=== PATIENT | female | born 1930 | race African-American/Black ===

== ENCOUNTER 2016-06-10 21:48 | Emergency (ER) | payer MEDICARE, MEDICAID ==
[~2016-06-10] VITALS: Ht 152.4 cm; Wt 51.0 kg
[~2016-06-10 21:48] MED LIST: AMLO5TAB4 PO
[2016-06-11] MEDS ORDERED: MAGNESIUM/ALUMINUM HYDROXIDE/SIMETHICONE 30ML UDC PO ONE (00:15)
[2016-06-11] MEDS ORDERED: FAMOTIDINE 20MG/2ML VIAL IV ONE (00:15)
[2016-06-11] MEDS ORDERED: VISCOUS LIDOCAINE 2% 15 ML UDC MM ONE (00:15)
[2016-06-11 03:33] VITALS: BP 125/65
== END 2016-06-11 03:45 | disposition home or self-care (01) ==
LOC: ER 21:49
DX: R10.13 Epigastric pain (principal); K21.9 Gastro-esophageal reflux disease without esophagitis; R07.9 Chest pain, unspecified; Z86.73 Personal history of transient ischemic attack (TIA), and cerebral infarction without residual deficits; Z98.890 Other specified postprocedural states
CPT/HCPCS: 36415; 84484; 93005; 96374; 99285

== ENCOUNTER 2017-01-09 13:14 | Emergency (ER) | payer MEDICAID, MEDICARE ==
[~2017-01-09] VITALS: Ht 152.4 cm; Wt 54.0 kg
[2017-01-09 15:00] VITALS: BP 140/72
[2017-01-09] MEDS ORDERED: IPRATROPIUM BROMIDE (0.02%) 0.5MG/2.5ML NEB HHN STA (16:29)
[2017-01-09] MEDS ORDERED: ALBUTEROL (0.083%) 2.5MG/3ML NEB HHN STA (16:29)
[2017-01-09] MEDS ORDERED: PREDNISONE 20MG TABLET PO STA (16:29)
== END 2017-01-09 18:56 | disposition home or self-care (01) ==
LOC: ER 13:43
DX: J44.9 Chronic obstructive pulmonary disease, unspecified (principal); I10 Essential (primary) hypertension; E78.00 Pure hypercholesterolemia, unspecified; Z86.73 Personal history of transient ischemic attack (TIA), and cerebral infarction without residual deficits; Z96.649 Presence of unspecified artificial hip joint; Z88.5 Allergy status to narcotic agent
CPT/HCPCS: 71010; 94640; 99283; J7512; J7611; J7644

== ENCOUNTER 2018-04-11 12:17 | Emergency (ER) | payer MEDICARE, MEDICAID ==
[~2018-04-11] VITALS: Ht 165.1 cm; Wt 53.0 kg
[2018-04-11 15:52] LABS: HEMOGLOBIN 14.3 g/dL (12.0-16.0); MEAN CORPUSCULAR HEMOGLOBIN 29.2 pg (28.0-32.0); MEAN CORPUSCULAR VOLUME 87.8 fL (81.0-99.0); PLATELET 134 x1000/uL (130-400); RED CELL DISTRIBUTION WIDTH 13.6 % (11.6-14.6)
[2018-04-11 15:55] LABS: CHLORIDE 106 mEq/L (98-107)
[2018-04-11 16:03] LABS: CREATINE KINASE 550 IU/L (26-192)
[2018-04-11 17:24] LABS: CLARITY URINE CLOUDY (CLEAR); COLOR URINE YELLOW (YELLOW); KETONES URINE 1+ (NEGATIVE); LEUKOCYTE ESTERASE URINE TRACE (NEGATIVE); NITRITE URINE POSITIVE (NEGATIVE); OCCULT BLOOD URINE 2+ (NEGATIVE); PROTEIN URINE TRACE (NEGATIVE); SPECIFIC GRAVITY URINE 1.016 (1.005-1.030)
[2018-04-11] MEDS ORDERED: CEPHALEXIN 250MG CAPSULE PO NR (17:45)
[2018-04-11 18:10] VITALS: BP 112/74
== END 2018-04-11 18:10 | disposition home or self-care (01) ==
LOC: ER 12:17
DX: N39.0 Urinary tract infection, site not specified (principal); E78.00 Pure hypercholesterolemia, unspecified; I10 Essential (primary) hypertension; W01.0XXA Fall on same level from slipping, tripping and stumbling without subsequent striking against object, initial encounter; Y93.89 Activity, other specified; Y92.003 Bedroom of unspecified non-institutional (private) residence as the place of occurrence of the external cause; Z86.73 Personal history of transient ischemic attack (TIA), and cerebral infarction without residual deficits; Z96.641 Presence of right artificial hip joint
CPT/HCPCS: 36415; 71045; 72170; 82550; 85027; 99284

== ENCOUNTER 2018-04-12 18:06 | Inpatient (IN) | payer MEDICARE, MEDICAID ==
[~2018-04-12] VITALS: Ht 165.1 cm; Wt 60.4 kg
[2018-04-12] MEDS ORDERED: SODIUM CHLORIDE 0.9% 1,000 ML IV ONE (18:28)
[2018-04-12 20:02] LABS: BASOPHILS % 0.6 % (0.0-2.0); EOSINOPHILS % 0.8 % (0.0-5.0); HEMOGLOBIN. 13.4 g/dL (12.0-16.0); LYMPHOCYTES % 15.7 % (20.0-50.0); MEAN CORPUSCULAR HEMOGLOBIN 29.7 pg (28.0-32.0); MEAN CORPUSCULAR VOLUME 88.5 fL (81.0-99.0); MEAN PLATELET VOLUME 9.7 fl (7.4-10.4); MONOCYTES % 10.9 % (2.0-8.0); PLATELET 134 x1000/uL (130-400); RED BLOOD CELL COUNT 4.52 mill/uL (4.2-5.4); RED CELL DISTRIBUTION WIDTH 13.7 % (11.6-14.6)
[2018-04-12 20:05] LABS: CHLORIDE 107 mEq/L (98-107)
[2018-04-12 20:09] LABS: ETHANOL BLOOD < 10 mg/dL
[2018-04-12 20:12] LABS: LDL CHOLESTEROL 72 mg/dL (5-100)
[2018-04-12 20:13] LABS: INR 1.1; PROTHROMBIN TIME 10.9 sec (9.1-11.1)
[2018-04-12] MEDS ORDERED: ASPIRIN 81MG TABLET PO ONE (20:15)
[2018-04-12] MEDS ORDERED: IOHEXOL-350 100 ML BOTTLE ONE (20:31)
[2018-04-13] VITALS (9 sets, daily range): BP systolic 107–137; BP diastolic 51–80
[2018-04-13 09:12] LABS: BASOPHILS % 0.6 % (0.0-2.0); EOSINOPHILS % 2.3 % (0.0-5.0); HEMATOCRIT. 38.2 % (36.0-48.0); HEMOGLOBIN. 12.8 g/dL (12.0-16.0); LYMPHOCYTES % 23.2 % (20.0-50.0); MEAN CORPUSCULAR HEMOGLOBIN 29.4 pg (28.0-32.0); MEAN CORPUSCULAR VOLUME 87.7 fL (81.0-99.0); MEAN PLATELET VOLUME 9.3 fl (7.4-10.4); MONOCYTES % 10.3 % (2.0-8.0); NEUTROPHILS % 63.6 % (40.0-76.0); PLATELET 131 x1000/uL (130-400); RED BLOOD CELL COUNT 4.36 mill/uL (4.2-5.4); RED CELL DISTRIBUTION WIDTH 13.3 % (11.6-14.6)
[2018-04-13 09:20] LABS: CHLORIDE 113 mEq/L (98-107)
[2018-04-13 09:28] LABS: LDL CHOLESTEROL 73 mg/dL (5-100)
[2018-04-13 09:30] LABS: HDL CHOLESTEROL 49 mg/dL (40-59)
[2018-04-13 09:56] LABS: CLARITY URINE CLEAR (CLEAR); COLOR URINE YELLOW (YELLOW); KETONES URINE 1+ (NEGATIVE); LEUKOCYTE ESTERASE URINE NEGATIVE (NEGATIVE); NITRITE URINE NEGATIVE (NEGATIVE); OCCULT BLOOD URINE 1+ (NEGATIVE); PROTEIN URINE NEGATIVE (NEGATIVE); SPECIFIC GRAVITY URINE 1.058 (1.005-1.030)
[2018-04-13] MEDS: DEXT 5%/0.45% NACL KCL 20MEQ/L 1,000 ML IV SCH ×2 (09:56→16:41)
[2018-04-13 10:20] LABS: *AMPHETAMINES SCREEN URINE NEGATIVE (NEGATIVE); OPIATES URINE SCREEN NEGATIVE (NEGATIVE)
[2018-04-13 10:21] LABS: *BARBITURATES SCREEN URINE NEGATIVE (NEGATIVE); *BENZODIAZEPINES SCREEN URINE NEGATIVE (NEGATIVE)
[2018-04-13 10:22] LABS: PHENCYCLIDINE URINE SCREEN NEGATIVE (NEGATIVE)
[2018-04-13 10:23] LABS: CANNABINOID URINE SCREEN NEGATIVE (NEGATIVE)
[2018-04-13 10:24] LABS: METHADONE URINE SCREEN NEGATIVE (NEGATIVE)
[2018-04-13 10:25] LABS: *COCAINE SCREEN URINE NEGATIVE (NEGATIVE)
[2018-04-13] MEDS: ASPIRIN 81MG EC TABLET PO SCH (18:45)
[2018-04-13] MEDS: ENOXAPARIN 40MG/0.4ML SYR SUBCUT SCH (18:45)
[2018-04-13] MEDS ORDERED: ATORVASTATIN CALCIUM 40MG TABLET PO SCH (21:00)
[2018-04-14] VITALS (12 sets, daily range): BP systolic 99–147; BP diastolic 48–99
[2018-04-14] MEDS: DEXT 5%/0.45% NACL KCL 20MEQ/L 1,000 ML IV SCH ×2 (03:33→12:10)
[2018-04-14 07:16] LABS: BASOPHILS % 0.7 % (0.0-2.0); EOSINOPHILS % 2.4 % (0.0-5.0); HEMATOCRIT. 35.6 % (36.0-48.0); HEMOGLOBIN. 11.9 g/dL (12.0-16.0); LYMPHOCYTES % 19.9 % (20.0-50.0); MEAN CORPUSCULAR HEMOGLOBIN 29.5 pg (28.0-32.0); MEAN CORPUSCULAR VOLUME 87.8 fL (81.0-99.0); MEAN PLATELET VOLUME 9.6 fl (7.4-10.4); MONOCYTES % 11.8 % (2.0-8.0); NEUTROPHILS % 65.2 % (40.0-76.0); PLATELET 122 x1000/uL (130-400); RED BLOOD CELL COUNT 4.05 mill/uL (4.2-5.4); RED CELL DISTRIBUTION WIDTH 13.1 % (11.6-14.6)
[2018-04-14 08:04] LABS: CHLORIDE 112 mEq/L (98-107)
[2018-04-14] MEDS: ASPIRIN 81MG EC TABLET PO SCH (08:19)
[2018-04-14] MEDS: ENOXAPARIN 40MG/0.4ML SYR SUBCUT SCH (16:05)
[2018-04-14] MEDS ORDERED: ATORVASTATIN CALCIUM 10MG TABLET PO SCH (21:00)
[2018-04-15] VITALS (11 sets, daily range): BP systolic 101–176; BP diastolic 39–99
[2018-04-15] MEDS: DEXT 5%/0.45% NACL KCL 20MEQ/L 1,000 ML IV SCH ×2 (01:22→12:33)
[2018-04-15 07:58] LABS: CHLORIDE 113 mEq/L (98-107)
[2018-04-15] MEDS ORDERED: GADOBENATE DIMEGLUMINE 529 MG/ML 10ML IV ONE (09:12)
[2018-04-15] MEDS ORDERED: AMLODIPINE 5MG TABLET PO SCH (10:45)
[2018-04-15] MEDS ORDERED: HYDRALAZINE 20MG/ML VIAL IV PRN (13:00)
[2018-04-15] MEDS: ENOXAPARIN 40MG/0.4ML SYR SUBCUT SCH (16:52)
== END 2018-04-15 18:25 | DRG 65 ==
LOC: ER 18:06 → 3WST 04-13 00:27 → EDBEDREQTM 04-13 00:33 → EDBEDREQ 04-13 00:33 → ENRESERV 04-13 02:56
PROVIDERS: ADMIT Internal Medicine; ATTEND Internal Medicine
DX: I63.9 Cerebral infarction, unspecified (principal); G93.40 Encephalopathy, unspecified; D68.59 Other primary thrombophilia; G81.91 Hemiplegia, unspecified affecting right dominant side; E86.0 Dehydration; D64.9 Anemia, unspecified; Z96.641 Presence of right artificial hip joint; R47.81 Slurred speech; R74.8 Abnormal levels of other serum enzymes; R26.2 Difficulty in walking, not elsewhere classified; F03.90 Unspecified dementia, unspecified severity, without behavioral disturbance, psychotic disturbance, mood disturbance, and anxiety; I65.23 Occlusion and stenosis of bilateral carotid arteries; Z60.2 Problems related to living alone; D32.9 Benign neoplasm of meninges, unspecified; D18.09 Hemangioma of other sites; R73.9 Hyperglycemia, unspecified; I11.9 Hypertensive heart disease without heart failure; Z86.73 Personal history of transient ischemic attack (TIA), and cerebral infarction without residual deficits; Z87.440 Personal history of urinary (tract) infections; Z88.5 Allergy status to narcotic agent; Z88.6 Allergy status to analgesic agent; Z79.899 Other long term (current) drug therapy
CPT/HCPCS: 36415; 70496; 70498; 70551; 70552; 71045; 72170; 80048; 80061; 80305; 80320; 82140; 82550; 82962; 83036; 83721; 84484; 85027; 92523; 92610; 93005; 93306; 96365; 96375; 97116; 97163; 97167; 97530; 99285; A6261; A9577; C1893; J1650; J7030; J7050; Q9967; A4315; G0480

== ENCOUNTER 2018-04-15 18:35 | Inpatient (IN) | payer MEDICARE, MEDICAID ==
[~2018-04-15] VITALS: Ht 157.5 cm; Wt 59.0 kg
[2018-04-15 19:45] VITALS: BP 132/79
[2018-04-15 20:00] VITALS: BP 132/79
[2018-04-15] MEDS ORDERED: HYDROCODONE/ACETAMINOPHEN 5/325MG TABLET PO PRN (21:00)
[2018-04-15] MEDS: ATORVASTATIN CALCIUM 10MG TABLET PO SCH (21:33)
[2018-04-16 07:17] LABS: HEMATOCRIT 37.3 % (36.0-48.0); HEMOGLOBIN 12.6 g/dL (12.0-16.0); MEAN CORPUSCULAR HEMOGLOBIN 29.4 pg (28.0-32.0); PLATELET 130 x1000/uL (130-400); RED BLOOD CELL COUNT 4.29 mill/uL (4.2-5.4); RED CELL DISTRIBUTION WIDTH 13.6 % (11.6-14.6)
[2018-04-16 08:00] VITALS: BP 122/55
[2018-04-16] MEDS: AMLODIPINE 5MG TABLET PO SCH (08:12)
[2018-04-16 08:20] LABS: CHLORIDE 109 mEq/L (98-107)
[2018-04-16] MEDS ORDERED: DIPHENHYDRAMINE 50MG/ML VIAL IV PRN (14:45)
[2018-04-16] MEDS ORDERED: ACETAMINOPHEN 650MG SUPP PR PRN (14:45)
[2018-04-16] MEDS ORDERED: DOCUSATE SODIUM 100MG CAPSULE PO PRN (14:45)
[2018-04-16] MEDS ORDERED: HYDRALAZINE 20MG/ML VIAL IV PRN (14:45)
[2018-04-16] MEDS ORDERED: ACETAMINOPHEN 325MG TABLET PO PRN (15:00)
[2018-04-16] MEDS ORDERED: NA PHOS,M-B/NA PHOS,DI-BA ENEMA 118ML PR PRN (15:00)
[2018-04-16] MEDS ORDERED: LACTULOSE 20G/30ML UDC PO PRN (15:00)
[2018-04-16] MEDS ORDERED: HYDRALAZINE 10 MG in SODIUM CHLORIDE 0.9% 50 ML IV PRN (15:15)
[2018-04-16] MEDS: CLOPIDOGREL 75MG TABLET PO SCH (15:42)
[2018-04-16] MEDS: ENOXAPARIN 40MG/0.4ML SYR SUBCUT SCH (16:13)
[2018-04-16 20:00] VITALS: BP 124/47
[2018-04-16] MEDS: ATORVASTATIN CALCIUM 10MG TABLET PO SCH (20:38)
[2018-04-17 06:45] LABS: CHLORIDE 111 mEq/L (98-107)
[2018-04-17 06:55] LABS: HEMATOCRIT 37.3 % (36.0-48.0); HEMOGLOBIN 12.5 g/dL (12.0-16.0); MEAN CORPUSCULAR HEMOGLOBIN 29.2 pg (28.0-32.0); MEAN CORPUSCULAR VOLUME 87.2 fL (81.0-99.0); PLATELET 146 x1000/uL (130-400); RED BLOOD CELL COUNT 4.28 mill/uL (4.2-5.4); RED CELL DISTRIBUTION WIDTH 13.5 % (11.6-14.6)
[2018-04-17 08:00] VITALS: BP 132/57
[2018-04-17] MEDS: AMLODIPINE 5MG TABLET PO SCH (09:12)
[2018-04-17] MEDS: SULFAMETHOXAZOLE/TRIMETHOPRIM 400/80MG TAB PO SCH (09:12)
[2018-04-17] MEDS: CLOPIDOGREL 75MG TABLET PO SCH (09:12)
[2018-04-17] MEDS: ENOXAPARIN 40MG/0.4ML SYR SUBCUT SCH (17:07)
[2018-04-17 20:00] VITALS: BP 138/50
[2018-04-17] MEDS: ATORVASTATIN CALCIUM 10MG TABLET PO SCH (20:22)
[2018-04-17] MEDS: ASCORBIC ACID 250 MG TABLET PO SCH (20:22)
[2018-04-18 08:00] VITALS: BP 120/49
[2018-04-18] MEDS: ZINC SULFATE 220 MG ( 50 ) CAPSULE PO SCH (08:28)
[2018-04-18] MEDS: AMLODIPINE 5MG TABLET PO SCH (08:28)
[2018-04-18] MEDS: CLOPIDOGREL 75MG TABLET PO SCH (08:28)
[2018-04-18] MEDS: ASCORBIC ACID 250 MG TABLET PO SCH ×2 (08:28→20:25)
[2018-04-18] MEDS: SULFAMETHOXAZOLE/TRIMETHOPRIM 400/80MG TAB PO SCH (08:28)
[2018-04-18] MEDS: MULTIVITAMINS,THER W-MINERALS TABLET PO SCH (08:28)
[2018-04-18] MEDS: ENOXAPARIN 40MG/0.4ML SYR SUBCUT SCH (16:50)
[2018-04-18 20:00] VITALS: BP 102/49
[2018-04-18] MEDS: ATORVASTATIN CALCIUM 10MG TABLET PO SCH (20:24)
[2018-04-19 07:27] LABS: HEMATOCRIT 36.2 % (36.0-48.0); MEAN CORPUSCULAR HEMOGLOBIN 29.3 pg (28.0-32.0); MEAN CORPUSCULAR VOLUME 87.9 fL (81.0-99.0); PLATELET 182 x1000/uL (130-400); RED BLOOD CELL COUNT 4.11 mill/uL (4.2-5.4); RED CELL DISTRIBUTION WIDTH 13.5 % (11.6-14.6)
[2018-04-19 07:53] LABS: CHLORIDE 109 mEq/L (98-107)
[2018-04-19 08:26] VITALS: BP 113/44
[2018-04-19] MEDS: AMLODIPINE 5MG TABLET PO SCH (09:00)
[2018-04-19] MEDS: ZINC SULFATE 220 MG ( 50 ) CAPSULE PO SCH (09:47)
[2018-04-19] MEDS: ASCORBIC ACID 250 MG TABLET PO SCH ×2 (09:47→21:25)
[2018-04-19] MEDS: CLOPIDOGREL 75MG TABLET PO SCH (09:48)
[2018-04-19] MEDS: SULFAMETHOXAZOLE/TRIMETHOPRIM 400/80MG TAB PO SCH (09:51)
[2018-04-19] MEDS: MULTIVITAMINS,THER W-MINERALS TABLET PO SCH (09:51)
[2018-04-19] MEDS: ENOXAPARIN 40MG/0.4ML SYR SUBCUT SCH (16:14)
[2018-04-19 20:00] VITALS: BP 120/51
[2018-04-19] MEDS: ATORVASTATIN CALCIUM 10MG TABLET PO SCH (21:25)
[2018-04-20 08:00] VITALS: BP 113/51
[2018-04-20] MEDS: SULFAMETHOXAZOLE/TRIMETHOPRIM 400/80MG TAB PO SCH (09:00)
[2018-04-20] MEDS: CLOPIDOGREL 75MG TABLET PO SCH (09:00)
[2018-04-20] MEDS: ZINC SULFATE 220 MG ( 50 ) CAPSULE PO SCH (09:00)
[2018-04-20] MEDS: ASCORBIC ACID 250 MG TABLET PO SCH ×2 (09:00→20:34)
[2018-04-20] MEDS: MULTIVITAMINS,THER W-MINERALS TABLET PO SCH (09:00)
[2018-04-20] MEDS: ENOXAPARIN 40MG/0.4ML SYR SUBCUT SCH (17:13)
[2018-04-20 20:00] VITALS: BP 107/63
[2018-04-20] MEDS: ATORVASTATIN CALCIUM 10MG TABLET PO SCH (20:34)
[2018-04-21 08:00] VITALS: BP 107/45
[2018-04-21] MEDS: ZINC SULFATE 220 MG ( 50 ) CAPSULE PO SCH (10:11)
[2018-04-21] MEDS: SULFAMETHOXAZOLE/TRIMETHOPRIM 400/80MG TAB PO SCH (10:11)
[2018-04-21] MEDS: MULTIVITAMINS,THER W-MINERALS TABLET PO SCH (10:11)
[2018-04-21] MEDS: CLOPIDOGREL 75MG TABLET PO SCH (10:11)
[2018-04-21] MEDS: ASCORBIC ACID 250 MG TABLET PO SCH ×2 (10:11→20:28)
[2018-04-21] MEDS: ENOXAPARIN 40MG/0.4ML SYR SUBCUT SCH (18:07)
[2018-04-21 20:00] VITALS: BP 115/41
[2018-04-21] MEDS: ATORVASTATIN CALCIUM 10MG TABLET PO SCH (20:28)
[2018-04-22 08:41] VITALS: BP 109/46
[2018-04-22] MEDS: ZINC SULFATE 220 MG ( 50 ) CAPSULE PO SCH (09:15)
[2018-04-22] MEDS: CLOPIDOGREL 75MG TABLET PO SCH (09:15)
[2018-04-22] MEDS: MULTIVITAMINS,THER W-MINERALS TABLET PO SCH (09:15)
[2018-04-22] MEDS: ASCORBIC ACID 250 MG TABLET PO SCH ×2 (09:15→20:47)
[2018-04-22] MEDS: SULFAMETHOXAZOLE/TRIMETHOPRIM 400/80MG TAB PO SCH (09:15)
[2018-04-22] MEDS: ACETAMINOPHEN 325MG TABLET PO PRN (09:35)
[2018-04-22] MEDS: TRAMADOL 50MG TABLET PO PRN (13:44)
[2018-04-22] MEDS: ENOXAPARIN 40MG/0.4ML SYR SUBCUT SCH (16:44)
[2018-04-22 20:00] VITALS: BP 116/54
[2018-04-22] MEDS: ATORVASTATIN CALCIUM 10MG TABLET PO SCH (20:47)
[2018-04-23 08:21] VITALS: BP 105/54
[2018-04-23] MEDS: ASCORBIC ACID 250 MG TABLET PO SCH ×2 (08:45→21:47)
[2018-04-23] MEDS: SULFAMETHOXAZOLE/TRIMETHOPRIM 400/80MG TAB PO SCH (08:45)
[2018-04-23] MEDS: ZINC SULFATE 220 MG ( 50 ) CAPSULE PO SCH (08:45)
[2018-04-23] MEDS: MULTIVITAMINS,THER W-MINERALS TABLET PO SCH (08:45)
[2018-04-23] MEDS: CLOPIDOGREL 75MG TABLET PO SCH (08:45)
[2018-04-23 16:15] VITALS: BP 115/71
[2018-04-23] MEDS: ENOXAPARIN 40MG/0.4ML SYR SUBCUT SCH (16:21)
[2018-04-23] MEDS: TRAMADOL 50MG TABLET PO PRN (16:22)
[2018-04-23 20:00] VITALS: BP 108/63
[2018-04-23] MEDS: ATORVASTATIN CALCIUM 10MG TABLET PO SCH (21:47)
[2018-04-24 06:29] LABS: HEMATOCRIT 37.7 % (36.0-48.0); HEMOGLOBIN 12.3 g/dL (12.0-16.0); MEAN CORPUSCULAR HEMOGLOBIN 28.7 pg (28.0-32.0); MEAN CORPUSCULAR VOLUME 88.1 fL (81.0-99.0); PLATELET 266 x1000/uL (130-400); RED BLOOD CELL COUNT 4.28 mill/uL (4.2-5.4); RED CELL DISTRIBUTION WIDTH 13.1 % (11.6-14.6)
[2018-04-24 07:23] LABS: CHLORIDE 105 mEq/L (98-107)
[2018-04-24 08:00] VITALS: BP 119/50
[2018-04-24] MEDS: SULFAMETHOXAZOLE/TRIMETHOPRIM 400/80MG TAB PO SCH (09:35)
[2018-04-24] MEDS: ASCORBIC ACID 250 MG TABLET PO SCH ×2 (09:35→20:24)
[2018-04-24] MEDS: CLOPIDOGREL 75MG TABLET PO SCH (09:35)
[2018-04-24] MEDS: ZINC SULFATE 220 MG ( 50 ) CAPSULE PO SCH (09:35)
[2018-04-24] MEDS: MULTIVITAMINS,THER W-MINERALS TABLET PO SCH (09:35)
[2018-04-24] MEDS: TRAMADOL 50MG TABLET PO PRN (10:56)
[2018-04-24] MEDS ORDERED: HYDROCODONE/ACETAMINOPHEN 5/325MG TABLET PO PRN (14:15)
[2018-04-24] MEDS ORDERED: SODIUM POLYSTYRENE SULFONATE 15 G/60 ML BOT PO NR (14:45)
[2018-04-24] MEDS: ENOXAPARIN 40MG/0.4ML SYR SUBCUT SCH (17:24)
[2018-04-24 18:28] LABS: CLARITY URINE CLEAR (CLEAR); COLOR URINE DARK YELLOW (YELLOW); KETONES URINE NEGATIVE (NEGATIVE); LEUKOCYTE ESTERASE URINE NEGATIVE (NEGATIVE); NITRITE URINE NEGATIVE (NEGATIVE); OCCULT BLOOD URINE NEGATIVE (NEGATIVE); PH URINE 5.5 (4.5-8.0); PROTEIN URINE NEGATIVE (NEGATIVE); SPECIFIC GRAVITY URINE 1.022 (1.005-1.030); UROBILINOGEN URINE 0.2 E.U./dL (0.2-1.0)
[2018-04-24 20:00] VITALS: BP 116/55
[2018-04-24] MEDS: ATORVASTATIN CALCIUM 10MG TABLET PO SCH (20:24)
[2018-04-24] MEDS: CEPHALEXIN 250MG CAPSULE PO SCH (20:24)
[2018-04-24] MEDS: ACETAMINOPHEN 325MG TABLET PO PRN (20:25)
[2018-04-25 07:30] LABS: HEMATOCRIT 37.2 % (36.0-48.0); MEAN CORPUSCULAR VOLUME 89.7 fL (81.0-99.0); PLATELET 278 x1000/uL (130-400); RED BLOOD CELL COUNT 4.15 mill/uL (4.2-5.4); RED CELL DISTRIBUTION WIDTH 13.4 % (11.6-14.6)
[2018-04-25 08:00] VITALS: BP 121/50
[2018-04-25] MEDS: ZINC SULFATE 220 MG ( 50 ) CAPSULE PO SCH (09:17)
[2018-04-25] MEDS: ASCORBIC ACID 250 MG TABLET PO SCH ×2 (09:17→20:28)
[2018-04-25] MEDS: MULTIVITAMINS,THER W-MINERALS TABLET PO SCH (09:17)
[2018-04-25] MEDS: CLOPIDOGREL 75MG TABLET PO SCH (09:17)
[2018-04-25] MEDS: CEPHALEXIN 250MG CAPSULE PO SCH ×2 (09:17→20:28)
[2018-04-25] MEDS: TRAMADOL 50MG TABLET PO PRN (09:28)
[2018-04-25] MEDS ORDERED: LIDOCAINE HCL/EPINEPHRINE 1%-EPI 1:100,000 50 ML VIAL INFIL SCH (11:30)
[2018-04-25] MEDS ORDERED: TRIAMCINOLONE ACETONIDE 40MG/ML 1ML VIAL IM SCH (11:30)
[2018-04-25] MEDS: ENOXAPARIN 30MG/0.3ML SYR SUBCUT SCH (17:15)
[2018-04-25 20:00] VITALS: BP 103/45
[2018-04-25] MEDS: ATORVASTATIN CALCIUM 10MG TABLET PO SCH (20:28)
[2018-04-26] MEDS ORDERED: TRIAMCINOLONE ACETONIDE 40MG/ML 1ML VIAL IM SCH (07:45)
[2018-04-26 08:01] VITALS: BP 104/38
[2018-04-26] MEDS: MULTIVITAMINS,THER W-MINERALS TABLET PO SCH (08:48)
[2018-04-26] MEDS: ZINC SULFATE 220 MG ( 50 ) CAPSULE PO SCH (08:48)
[2018-04-26] MEDS: ASCORBIC ACID 250 MG TABLET PO SCH ×2 (08:48→21:21)
[2018-04-26] MEDS: CEPHALEXIN 250MG CAPSULE PO SCH ×2 (08:48→21:21)
[2018-04-26] MEDS: CLOPIDOGREL 75MG TABLET PO SCH (08:49)
[2018-04-26] MEDS: ENOXAPARIN 30MG/0.3ML SYR SUBCUT SCH (17:17)
[2018-04-26 20:00] VITALS: BP 110/47
[2018-04-26] MEDS: ATORVASTATIN CALCIUM 10MG TABLET PO SCH (21:21)
[2018-04-27 08:26] VITALS: BP 122/56
[2018-04-27] MEDS: ZINC SULFATE 220 MG ( 50 ) CAPSULE PO SCH (08:49)
[2018-04-27] MEDS: MULTIVITAMINS,THER W-MINERALS TABLET PO SCH (08:49)
[2018-04-27] MEDS: CEPHALEXIN 250MG CAPSULE PO SCH ×2 (08:49→21:47)
[2018-04-27] MEDS: CLOPIDOGREL 75MG TABLET PO SCH (08:49)
[2018-04-27] MEDS: ASCORBIC ACID 250 MG TABLET PO SCH ×2 (08:49→21:47)
[2018-04-27] MEDS: ENOXAPARIN 30MG/0.3ML SYR SUBCUT SCH (17:36)
[2018-04-27 20:00] VITALS: BP 136/62
[2018-04-27] MEDS: ATORVASTATIN CALCIUM 10MG TABLET PO SCH (21:47)
[2018-04-27] MEDS: ACETAMINOPHEN 325MG TABLET PO PRN (21:47)
[2018-04-28 06:52] LABS: CHLORIDE 107 mEq/L (98-107)
[2018-04-28 07:26] LABS: HEMATOCRIT 35.5 % (36.0-48.0); HEMOGLOBIN 11.7 g/dL (12.0-16.0); MEAN CORPUSCULAR HEMOGLOBIN 28.9 pg (28.0-32.0); PLATELET 310 x1000/uL (130-400); RED BLOOD CELL COUNT 4.04 mill/uL (4.2-5.4); RED CELL DISTRIBUTION WIDTH 13.1 % (11.6-14.6)
[2018-04-28 08:49] VITALS: BP 123/47
[2018-04-28] MEDS: ASCORBIC ACID 250 MG TABLET PO SCH ×2 (08:51→20:36)
[2018-04-28] MEDS: MULTIVITAMINS,THER W-MINERALS TABLET PO SCH (08:51)
[2018-04-28] MEDS: CEPHALEXIN 250MG CAPSULE PO SCH ×3 (08:51→21:05)
[2018-04-28] MEDS: ZINC SULFATE 220 MG ( 50 ) CAPSULE PO SCH (08:51)
[2018-04-28] MEDS: CLOPIDOGREL 75MG TABLET PO SCH (08:51)
[2018-04-28] MEDS: ENOXAPARIN 40MG/0.4ML SYR SUBCUT SCH (17:00)
[2018-04-28 20:00] VITALS: BP 107/51
[2018-04-28] MEDS: ATORVASTATIN CALCIUM 10MG TABLET PO SCH (20:36)
[2018-04-29] MEDS: CEPHALEXIN 250MG CAPSULE PO SCH ×3 (05:18→20:57)
[2018-04-29 08:00] VITALS: BP 121/50
[2018-04-29] MEDS: MULTIVITAMINS,THER W-MINERALS TABLET PO SCH (10:42)
[2018-04-29] MEDS: CLOPIDOGREL 75MG TABLET PO SCH (10:42)
[2018-04-29] MEDS: ZINC SULFATE 220 MG ( 50 ) CAPSULE PO SCH (10:42)
[2018-04-29] MEDS: ASCORBIC ACID 250 MG TABLET PO SCH ×2 (10:42→20:57)
[2018-04-29] MEDS: ENOXAPARIN 40MG/0.4ML SYR SUBCUT SCH (17:00)
[2018-04-29 20:00] VITALS: BP 137/68
[2018-04-29] MEDS: ATORVASTATIN CALCIUM 10MG TABLET PO SCH (20:57)
[2018-04-30] MEDS: CEPHALEXIN 250MG CAPSULE PO SCH ×3 (05:29→21:13)
[2018-04-30 08:00] VITALS: BP 113/54
[2018-04-30] MEDS: CLOPIDOGREL 75MG TABLET PO SCH (09:10)
[2018-04-30] MEDS: MULTIVITAMINS,THER W-MINERALS TABLET PO SCH (09:10)
[2018-04-30] MEDS: ZINC SULFATE 220 MG ( 50 ) CAPSULE PO SCH (09:10)
[2018-04-30] MEDS: ASCORBIC ACID 250 MG TABLET PO SCH ×2 (09:17→20:28)
[2018-04-30 12:03] VITALS: BP 121/50
[2018-04-30] MEDS: ENOXAPARIN 40MG/0.4ML SYR SUBCUT SCH (17:00)
[2018-04-30 20:00] VITALS: BP 131/51
[2018-04-30] MEDS: ATORVASTATIN CALCIUM 10MG TABLET PO SCH (20:28)
[2018-05-01] MEDS: CEPHALEXIN 250MG CAPSULE PO SCH ×2 (05:19→14:00)
[2018-05-01 08:00] VITALS: BP 129/59
[2018-05-01] MEDS: ZINC SULFATE 220 MG ( 50 ) CAPSULE PO SCH (08:52)
[2018-05-01] MEDS: CLOPIDOGREL 75MG TABLET PO SCH (08:52)
[2018-05-01] MEDS: MULTIVITAMINS,THER W-MINERALS TABLET PO SCH (08:52)
[2018-05-01] MEDS: ASCORBIC ACID 250 MG TABLET PO SCH (08:53)
[2018-05-01 14:58] VITALS: BP 131/51
== END 2018-05-01 17:00 | disposition home health service (06) | DRG 56 ==
LOC: UNDOADMIN 19:14
PROVIDERS: ADMIT Psychiatry & Neurology Neurology; ATTEND Internal Medicine
DX: I69.351 Hemiplegia and hemiparesis following cerebral infarction affecting right dominant side (principal); I63.9 Cerebral infarction, unspecified; I50.33 Acute on chronic diastolic (congestive) heart failure; D68.59 Other primary thrombophilia; I67.4 Hypertensive encephalopathy; N39.0 Urinary tract infection, site not specified; D32.0 Benign neoplasm of cerebral meninges; R00.1 Bradycardia, unspecified; I08.1 Rheumatic disorders of both mitral and tricuspid valves; I11.0 Hypertensive heart disease with heart failure; D64.9 Anemia, unspecified; Z87.440 Personal history of urinary (tract) infections; E78.5 Hyperlipidemia, unspecified; F01.50 Vascular dementia, unspecified severity, without behavioral disturbance, psychotic disturbance, mood disturbance, and anxiety; F32.9 Major depressive disorder, single episode, unspecified; F41.9 Anxiety disorder, unspecified; I48.91 Unspecified atrial fibrillation; I65.23 Occlusion and stenosis of bilateral carotid arteries; E87.5 Hyperkalemia; R32 Unspecified urinary incontinence; R15.9 Full incontinence of feces; R41.89 Other symptoms and signs involving cognitive functions and awareness; I69.319 Unspecified symptoms and signs involving cognitive functions following cerebral infarction; M17.11 Unilateral primary osteoarthritis, right knee; F06.31 Mood disorder due to known physiological condition with depressive features; R73.9 Hyperglycemia, unspecified; I27.22 Pulmonary hypertension due to left heart disease; Z88.6 Allergy status to analgesic agent; G89.29 Other chronic pain
CPT/HCPCS: 36415; 73560; 80048; 82962; 84132; 84484; 85027; 92508; 92523; 92610; 93005; 93970; 97110; 97116; 97163; 97166; 97530; 97535; A6261; J1650; J3301; J3490; A5200

== ENCOUNTER 2018-05-06 17:18 | Inpatient (IN) | payer MEDICARE, MEDICAID ==
[~2018-05-06] VITALS: Ht 157.5 cm; Wt 57.2 kg
[2018-05-06 17:53] LABS: HEMATOCRIT. 46.3 % (36.0-48.0); HEMOGLOBIN. 15.3 g/dL (12.0-16.0); MEAN CORPUSCULAR HEMOGLOBIN 29.2 pg (28.0-32.0); MEAN CORPUSCULAR VOLUME 88.4 fL (81.0-99.0); MEAN PLATELET VOLUME 10.2 fl (7.4-10.4); PLATELET 210 x1000/uL (130-400); RED BLOOD CELL COUNT 5.24 mill/uL (4.2-5.4); RED CELL DISTRIBUTION WIDTH 13.5 % (11.6-14.6)
[2018-05-06 17:58] LABS: CHLORIDE 110 mEq/L (98-107); INR 1.1; PROTHROMBIN TIME 11.1 sec (9.1-11.1)
[2018-05-06 18:23] LABS: PLATELET ESTIMATE NORMAL
[2018-05-06] MEDS ORDERED: PIPERACILLIN/TAZ 3.375G PREMIX 50 ML IV ONE (18:30)
[2018-05-06] MEDS ORDERED: POTASSIUM CHLORIDE INJ 30 MEQ in DEXT 5%/0.9% NACL 1,000 ML IV ONE ×2 (18:30→20:15)
[2018-05-06] MEDS ORDERED: VANCOMYCIN 1 G PREMIX 200 ML IV ONE (18:30)
[2018-05-06] MEDS ORDERED: POTASSIUM CHLORIDE 20MEQ TABLET SR PO ONE (18:30)
[2018-05-06] MEDS ORDERED: SODIUM CHLORIDE 0.9% 1000ML BAG (SEPSIS BOLUS) IV ONE (18:30)
[2018-05-06 19:05] LABS: CLARITY URINE CLOUDY (CLEAR); COLOR URINE DARK YELLOW (YELLOW); KETONES URINE TRACE (NEGATIVE); LEUKOCYTE ESTERASE URINE TRACE (NEGATIVE); NITRITE URINE NEGATIVE (NEGATIVE); OCCULT BLOOD URINE NEGATIVE (NEGATIVE); PROTEIN URINE 1+ (NEGATIVE); SPECIFIC GRAVITY URINE 1.023 (1.005-1.030)
[2018-05-07] VITALS (7 sets, daily range): BP systolic 100–112; BP diastolic 45–67
[2018-05-07] MEDS ORDERED: POTASSIUM CHLORIDE IV SCH ×2 (03:00→03:31)
[2018-05-07] MEDS ORDERED: NACL IV SCH ×2 (03:00→03:31)
[2018-05-07] MEDS ORDERED: DEXT IV SCH ×2 (03:00→03:31)
[2018-05-07 07:44] LABS: BASOPHILS % 0.1 % (0.0-2.0); EOSINOPHILS % 4.7 % (0.0-5.0); HEMOGLOBIN. 11.1 g/dL (12.0-16.0); LYMPHOCYTES % 9.8 % (20.0-50.0); MEAN CORPUSCULAR VOLUME 88.8 fL (81.0-99.0); MONOCYTES % 13.8 % (2.0-8.0); NEUTROPHILS % 71.6 % (40.0-76.0); PLATELET 128 x1000/uL (130-400); RED BLOOD CELL COUNT 3.83 mill/uL (4.2-5.4); RED CELL DISTRIBUTION WIDTH 13.6 % (11.6-14.6)
[2018-05-07 07:51] LABS: CHLORIDE 127 mEq/L (98-107)
[2018-05-07] MEDS ORDERED: ACETAMINOPHEN 650MG SUPP PR PRN (13:15)
[2018-05-07] MEDS ORDERED: IPRATROPIUM/ALBUTEROL 0.5-3(2.5)MG/3ML NEB INH PRN (13:15)
[2018-05-07] MEDS ORDERED: DOCUSATE SODIUM 100MG CAPSULE PO PRN (13:15)
[2018-05-07] MEDS ORDERED: MAGNESIUM/ALUMINUM HYDROXIDE/SIMETHICONE 30ML UDC PO PRN (13:15)
[2018-05-07] MEDS ORDERED: ACETAMINOPHEN 650MG/20.3ML UDC GT PRN (13:15)
[2018-05-07] MEDS ORDERED: DEXT 5%/0.45% NACL 1000ML 1,000 ML IV SCH (13:15)
[2018-05-07] MEDS ORDERED: ATROPINE SULFATE 1MG/10ML SYR IV PRN (13:15)
[2018-05-07] MEDS ORDERED: NA PHOS,M-B/NA PHOS,DI-BA ENEMA 118ML PR PRN (13:15)
[2018-05-07] MEDS ORDERED: DIPHENHYDRAMINE 50MG/ML VIAL IV PRN (13:15)
[2018-05-07] MEDS ORDERED: HYDROCODONE/ACETAMINOPHEN 5/325MG TABLET PO PRN (13:15)
[2018-05-07] MEDS ORDERED: HYDRALAZINE 20MG/ML VIAL IV PRN (13:15)
[2018-05-07] MEDS ORDERED: GUAIFENESIN 200MG/10ML SUGAR FREE UDC PO PRN (13:15)
[2018-05-07] MEDS ORDERED: LORAZEPAM 0.5MG TABLET PO PRN (13:15)
[2018-05-07] MEDS ORDERED: ONDANSETRON HCL 4MG/2ML INJ IV PRN (13:15)
[2018-05-07] MEDS: CLOPIDOGREL 75MG TABLET PO SCH (14:58)
[2018-05-07] MEDS: CEFTRIAXONE 1 G PREMIX 50 ML IV SCH (16:18)
[2018-05-07] MEDS: ENOXAPARIN 30MG/0.3ML SYR SUBCUT SCH (16:18)
[2018-05-07 16:42] LABS: *AMPHETAMINES SCREEN URINE NEGATIVE (NEGATIVE); *BARBITURATES SCREEN URINE NEGATIVE (NEGATIVE); METHADONE URINE SCREEN NEGATIVE (NEGATIVE); OPIATES URINE SCREEN NEGATIVE (NEGATIVE); PHENCYCLIDINE URINE SCREEN NEGATIVE (NEGATIVE)
[2018-05-07 16:43] LABS: *BENZODIAZEPINES SCREEN URINE NEGATIVE (NEGATIVE); *COCAINE SCREEN URINE NEGATIVE (NEGATIVE); CANNABINOID URINE SCREEN NEGATIVE (NEGATIVE)
[2018-05-07] MEDS ORDERED: ZINC220T MT (18:49)
[2018-05-07] MEDS ORDERED: CEPH-568 MT (18:49)
[2018-05-07] MEDS ORDERED: CLOP75TA16 MT (18:49)
[2018-05-07] MEDS ORDERED: ATOR20TA PO (18:49)
[2018-05-07] MEDS: DEXTROSE 5% WATER 1,000 ML IV SCH (19:38)
[2018-05-08] VITALS (21 sets, daily range): BP systolic 73–145; BP diastolic 20–80
[2018-05-08] MEDS: DEXTROSE 5% WATER 1,000 ML IV SCH ×2 (05:07→15:35)
[2018-05-08 07:02] LABS: BASOPHILS % 0.1 % (0.0-2.0); EOSINOPHILS % 4.5 % (0.0-5.0); HEMATOCRIT. 34.4 % (36.0-48.0); HEMOGLOBIN. 11.1 g/dL (12.0-16.0); LYMPHOCYTES % 12.1 % (20.0-50.0); MEAN CORPUSCULAR HEMOGLOBIN 28.9 pg (28.0-32.0); MEAN CORPUSCULAR VOLUME 89.7 fL (81.0-99.0); MEAN PLATELET VOLUME 10.2 fl (7.4-10.4); MONOCYTES % 10.5 % (2.0-8.0); NEUTROPHILS % 72.8 % (40.0-76.0); PLATELET 112 x1000/uL (130-400); RED BLOOD CELL COUNT 3.83 mill/uL (4.2-5.4); RED CELL DISTRIBUTION WIDTH 13.5 % (11.6-14.6)
[2018-05-08 07:21] LABS: CHLORIDE 124 mEq/L (98-107)
[2018-05-08 07:43] LABS: LDL CHOLESTEROL 57 mg/dL (5-100)
[2018-05-08 07:45] LABS: HDL CHOLESTEROL 27 mg/dL (40-59); T4 FREE 1.06 ng/dL (0.76-1.46)
[2018-05-08] MEDS: ENOXAPARIN 30MG/0.3ML SYR SUBCUT SCH ×2 (09:00→09:22)
[2018-05-08] MEDS: CLOPIDOGREL 75MG TABLET PO SCH ×2 (09:00→09:19)
[2018-05-08] MEDS ORDERED: POTASSIUM CHLORIDE INJ 40 MEQ in DEXT 5% WATER 250 ML IV NR (13:00)
[2018-05-08] MEDS: CEFTRIAXONE 1 G PREMIX 50 ML IV SCH (15:35)
[2018-05-09] VITALS (13 sets, daily range): BP systolic 109–145; BP diastolic 47–79
[2018-05-09] MEDS: DEXTROSE 5% WATER 1,000 ML IV SCH ×3 (00:23→20:50)
[2018-05-09 07:03] LABS: HEMATOCRIT 35.8 % (36.0-48.0); HEMOGLOBIN 11.7 g/dL (12.0-16.0); MEAN CORPUSCULAR HEMOGLOBIN 28.4 pg (28.0-32.0); MEAN CORPUSCULAR VOLUME 86.9 fL (81.0-99.0); PLATELET 92 x1000/uL (130-400); RED BLOOD CELL COUNT 4.12 mill/uL (4.2-5.4); RED CELL DISTRIBUTION WIDTH 13.2 % (11.6-14.6)
[2018-05-09 08:06] LABS: CHLORIDE 117 mEq/L (98-107)
[2018-05-09] MEDS: CLOPIDOGREL 75MG TABLET PO SCH (08:49)
[2018-05-09] MEDS ORDERED: ENOXAPARIN 40MG/0.4ML SYR SUBCUT SCH (09:00)
[2018-05-09] MEDS ORDERED: PIPERACILLIN/TAZ 3.375G PREMIX 50 ML IV SCH (10:45)
[2018-05-09] MEDS ORDERED: WATER IV SCH (11:00)
[2018-05-09] MEDS ORDERED: DEXT 5% IV SCH (11:00)
[2018-05-09] MEDS ORDERED: POTASSIUM CHLORIDE IV SCH (11:00)
[2018-05-09] MEDS: PIPERACILLIN/TAZ 2.25G PREMIX 50 ML IV SCH ×3 (13:48→23:08)
[2018-05-10] VITALS (18 sets, daily range): BP systolic 107–158; BP diastolic 54–84
[2018-05-10] MEDS: PIPERACILLIN/TAZ 2.25G PREMIX 50 ML IV SCH ×3 (05:13→18:06)
[2018-05-10] MEDS: DEXTROSE 5% WATER 1,000 ML IV SCH ×2 (05:18→16:19)
[2018-05-10 06:45] LABS: HEMATOCRIT 33.7 % (36.0-48.0); HEMOGLOBIN 11.3 g/dL (12.0-16.0); MEAN CORPUSCULAR HEMOGLOBIN 29.1 pg (28.0-32.0); MEAN CORPUSCULAR VOLUME 86.9 fL (81.0-99.0); PLATELET 102 x1000/uL (130-400); RED BLOOD CELL COUNT 3.88 mill/uL (4.2-5.4); RED CELL DISTRIBUTION WIDTH 13.5 % (11.6-14.6)
[2018-05-10 07:09] LABS: CHLORIDE 110 mEq/L (98-107)
[2018-05-10] MEDS: CLOPIDOGREL 75MG TABLET PO SCH (08:32)
[2018-05-10] MEDS ORDERED: POTASSIUM CHLORIDE 20MEQ TABLET SR PO NR (16:00)
[2018-05-10] MEDS ORDERED: VANCOMYCIN 1 G PREMIX 200 ML IV NR (17:30)
[2018-05-11 00:10] VITALS: BP 140/66
[2018-05-11] MEDS: PIPERACILLIN/TAZ 2.25G PREMIX 50 ML IV SCH ×4 (01:13→18:41)
[2018-05-11 04:00] VITALS: BP 141/83
[2018-05-11 05:47] LABS: HEMATOCRIT 37.1 % (36.0-48.0); HEMOGLOBIN 12.1 g/dL (12.0-16.0); MEAN CORPUSCULAR HEMOGLOBIN 28.4 pg (28.0-32.0); MEAN CORPUSCULAR VOLUME 86.9 fL (81.0-99.0); PLATELET 132 x1000/uL (130-400); RED BLOOD CELL COUNT 4.27 mill/uL (4.2-5.4); RED CELL DISTRIBUTION WIDTH 13.4 % (11.6-14.6)
[2018-05-11] MEDS: DEXTROSE 5% WATER 1,000 ML IV SCH ×2 (06:06→18:45)
[2018-05-11 06:15] LABS: CHLORIDE 107 mEq/L (98-107)
[2018-05-11 08:00] VITALS: BP 125/71
[2018-05-11] MEDS: VANCOMYCIN 750 MG PREMIX 150 ML IV SCH (08:57)
[2018-05-11] MEDS: CLOPIDOGREL 75MG TABLET PO SCH (08:57)
[2018-05-11 12:00] VITALS: BP 118/69
[2018-05-11 16:00] VITALS: BP 122/51
[2018-05-11 20:00] VITALS: BP 137/79
[2018-05-11] MEDS ORDERED: POTASSIUM CHLORIDE 20MEQ/PACKET PO NR (20:15)
[2018-05-12] VITALS: BP 125/76
[2018-05-12] MEDS: PIPERACILLIN/TAZ 2.25G PREMIX 50 ML IV SCH ×4 (00:16→18:50)
[2018-05-12 04:00] VITALS: BP 108/53
[2018-05-12] MEDS: VANCOMYCIN 750 MG PREMIX 150 ML IV SCH (04:41)
[2018-05-12 08:00] VITALS: BP 112/49
[2018-05-12] MEDS: CLOPIDOGREL 75MG TABLET PO SCH (09:00)
[2018-05-12 12:00] VITALS: BP 144/79
[2018-05-12] MEDS: DEXTROSE 5% WATER 1,000 ML IV SCH (14:13)
[2018-05-12] MEDS ORDERED: POTASSIUM CHLORIDE INJ 40 MEQ in DEXT 5% WATER 250 ML IV NR (17:00)
[2018-05-12] MEDS: ENOXAPARIN 60MG/0.6ML SYR SUBCUT SCH (18:50)
[2018-05-12 20:00] VITALS: BP 134/58
[2018-05-13] VITALS: BP 130/62
[2018-05-13] MEDS: PIPERACILLIN/TAZ 2.25G PREMIX 50 ML IV SCH ×5 (00:30→23:59)
[2018-05-13] MEDS: VANCOMYCIN 750 MG PREMIX 150 ML IV SCH ×2 (01:03→13:48)
[2018-05-13 04:00] VITALS: BP 134/80
[2018-05-13] MEDS: DEXTROSE 5% WATER 1,000 ML IV SCH ×2 (04:51→11:20)
[2018-05-13 07:23] LABS: BASOPHILS % 0.4 % (0.0-2.0); EOSINOPHILS % 1.2 % (0.0-5.0); HEMOGLOBIN. 11.4 g/dL (12.0-16.0); LYMPHOCYTES % 9.7 % (20.0-50.0); MEAN CORPUSCULAR HEMOGLOBIN 28.7 pg (28.0-32.0); MEAN CORPUSCULAR VOLUME 85.6 fL (81.0-99.0); MONOCYTES % 10.2 % (2.0-8.0); NEUTROPHILS % 78.5 % (40.0-76.0); PLATELET 155 x1000/uL (130-400); RED BLOOD CELL COUNT 3.97 mill/uL (4.2-5.4); RED CELL DISTRIBUTION WIDTH 13.5 % (11.6-14.6)
[2018-05-13 08:00] VITALS: BP 146/74
[2018-05-13 08:22] LABS: CHLORIDE 106 mEq/L (98-107)
[2018-05-13 08:29] LABS: PHOSPHORUS 2.5 mg/dL (2.5-4.9)
[2018-05-13] MEDS: CLOPIDOGREL 75MG TABLET PO SCH (09:00)
[2018-05-13] MEDS: ENOXAPARIN 60MG/0.6ML SYR SUBCUT SCH (09:06)
[2018-05-13 12:00] VITALS: BP 141/72
[2018-05-13] MEDS ORDERED: LORAZEPAM 2MG/ML CPJ IV PRN (14:30)
[2018-05-13 16:00] VITALS: BP 140/70
[2018-05-13] MEDS ORDERED: FLUCONAZOLE 200 MG/100ML BAG 100 ML IV SCH ×2 (16:00→18:00)
[2018-05-13] MEDS ORDERED: FLUCONAZOLE XX SCH (17:00)
[2018-05-13 17:14] LABS: HEMATOCRIT 34.4 % (36.0-48.0); HEMOGLOBIN 11.5 g/dL (12.0-16.0); MEAN CORPUSCULAR HEMOGLOBIN 28.7 pg (28.0-32.0); MEAN CORPUSCULAR VOLUME 86.1 fL (81.0-99.0); PLATELET 166 x1000/uL (130-400); RED CELL DISTRIBUTION WIDTH 13.5 % (11.6-14.6)
[2018-05-13 17:29] LABS: INR 1.1; PARTIAL THROMBOPLASTIN TIME 31.2 sec (23.4-31.0); PROTHROMBIN TIME 11.6 sec (9.6-11.0)
[2018-05-13 20:00] VITALS: BP 116/52
[2018-05-14] VITALS: BP 109/57
[2018-05-14] MEDS: VANCOMYCIN 750 MG PREMIX 150 ML IV SCH ×2 (01:00→14:00)
[2018-05-14 04:00] VITALS: BP 126/63
[2018-05-14] MEDS: PIPERACILLIN/TAZ 2.25G PREMIX 50 ML IV SCH ×2 (05:23→11:12)
[2018-05-14 05:41] LABS: CHLORIDE 105 mEq/L (98-107)
[2018-05-14 06:01] LABS: MEAN CORPUSCULAR HEMOGLOBIN 28.7 pg (28.0-32.0); MEAN CORPUSCULAR VOLUME 86.3 fL (81.0-99.0); PLATELET 173 x1000/uL (130-400); RED BLOOD CELL COUNT 3.82 mill/uL (4.2-5.4); RED CELL DISTRIBUTION WIDTH 13.5 % (11.6-14.6)
[2018-05-14 08:00] VITALS: BP_SYST 105; BP_SYST 140; BP_DIAS 49; BP_DIAS 70
[2018-05-14] MEDS: CLOPIDOGREL 75MG TABLET PO SCH (09:00)
[2018-05-14 12:00] VITALS: BP 110/56
[2018-05-14] MEDS ORDERED: BACTERIOSTATIC SODIUM CHLORIDE 0.9% 30ML VIAL IJ ONE (13:35)
[2018-05-14] MEDS ORDERED: SIMETHICONE 40 MG/0.6 ML 30ML ONE (13:35)
[2018-05-14 16:00] VITALS: BP 142/67
[2018-05-14] MEDS ORDERED: POTASSIUM CHLORIDE INJ 40 MEQ in DEXT 5% WATER 250 ML IV NR (16:00)
[2018-05-14] MEDS ORDERED: MIDAZOLAM HCL 5 MG/5 ML VIAL ONE (17:06)
[2018-05-14] MEDS ORDERED: FENTANYL CITRATE/PF 50MCG/ML 2ML VIAL ONE (17:06)
[2018-05-14] MEDS ORDERED: MIDAZOLAM HCL 2 MG/2 ML VIAL IV PRN (17:14)
[2018-05-15] VITALS: BP 129/77
[2018-05-15] MEDS: PIPERACILLIN/TAZ 2.25G PREMIX 50 ML IV SCH ×4 (00:23→22:06)
[2018-05-15] MEDS: VANCOMYCIN 750 MG PREMIX 150 ML IV SCH (00:23)
[2018-05-15] MEDS: FLUCONAZOLE 100MG/50ML in BAG IV SCH ×2 (00:27→22:06)
[2018-05-15] MEDS: DEXTROSE 5% WATER 1,000 ML IV SCH ×2 (01:05→02:59)
[2018-05-15 04:00] VITALS: BP 105/56
[2018-05-15 08:00] VITALS: BP 127/75
[2018-05-15 09:16] LABS: HEMATOCRIT 32.3 % (36.0-48.0); HEMOGLOBIN 10.7 g/dL (12.0-16.0); MEAN CORPUSCULAR HEMOGLOBIN 28.7 pg (28.0-32.0); MEAN CORPUSCULAR VOLUME 86.2 fL (81.0-99.0); PLATELET 189 x1000/uL (130-400); RED BLOOD CELL COUNT 3.75 mill/uL (4.2-5.4); RED CELL DISTRIBUTION WIDTH 13.5 % (11.6-14.6)
[2018-05-15] MEDS: CLOPIDOGREL 75MG TABLET PO SCH (09:30)
[2018-05-15 09:44] LABS: CHLORIDE 104 mEq/L (98-107)
[2018-05-15 12:00] VITALS: BP 128/71
[2018-05-15] MEDS ORDERED: POTASSIUM CHLORIDE INJ 40 MEQ in DEXT 5% WATER 250 ML IV ONE (13:00)
[2018-05-15 16:00] VITALS: BP 106/43
[2018-05-15] MEDS: ENOXAPARIN 60MG/0.6ML SYR SUBCUT SCH (18:35)
[2018-05-15] MEDS: VANCOMYCIN 1 G PREMIX 200 ML IV SCH (18:35)
[2018-05-15 20:00] VITALS: BP 116/77
[2018-05-15] MEDS: LEVETIRACETAM 500MG/5ML CUP PO SCH (22:05)
[2018-05-16 00:09] VITALS: BP 108/67
[2018-05-16] MEDS: PIPERACILLIN/TAZ 2.25G PREMIX 50 ML IV SCH ×3 (02:15→13:53)
[2018-05-16 04:00] VITALS: BP 124/68
[2018-05-16] MEDS: ENOXAPARIN 60MG/0.6ML SYR SUBCUT SCH ×2 (05:13→19:15)
[2018-05-16 07:04] LABS: HEMATOCRIT 31.9 % (36.0-48.0); HEMOGLOBIN 10.3 g/dL (12.0-16.0); MEAN CORPUSCULAR HEMOGLOBIN 28.1 pg (28.0-32.0); MEAN CORPUSCULAR VOLUME 86.5 fL (81.0-99.0); PLATELET 170 x1000/uL (130-400); RED BLOOD CELL COUNT 3.68 mill/uL (4.2-5.4); RED CELL DISTRIBUTION WIDTH 13.5 % (11.6-14.6)
[2018-05-16 07:51] LABS: CHLORIDE 107 mEq/L (98-107)
[2018-05-16 08:00] VITALS: BP 116/50
[2018-05-16] MEDS: LEVETIRACETAM 500MG/5ML CUP PO SCH (08:31)
[2018-05-16] MEDS: CLOPIDOGREL 75MG TABLET PO SCH (08:31)
[2018-05-16 12:00] VITALS: BP 120/64
[2018-05-16] MEDS: VANCOMYCIN 1 G PREMIX 200 ML IV SCH (13:07)
[2018-05-16 16:00] VITALS: BP 118/74
[2018-05-16 16:45] VITALS: BP 118/72
[2018-05-16] MEDS: FLUCONAZOLE 100MG/50ML in BAG IV SCH (18:00)
== END 2018-05-16 19:45 | DRG 280 ==
LOC: ER 17:18 → 3WST 18:19 → EDBEDREQ 18:24 → ENRESERV 05-07 10:00 → 7WST 05-11 00:15
PROVIDERS: ADMIT Internal Medicine; ATTEND Internal Medicine
PROC: 0DJ08ZZ Inspection of Upper Intestinal Tract, Via Natural or Artificial Opening Endoscopic (ICD-10-PCS; principal; 2018-05-14)
PROC: 0DH63UZ Insertion of Feeding Device into Stomach, Percutaneous Approach (ICD-10-PCS; 2018-05-14)
PROC: 0DB68ZX Excision of Stomach, Via Natural or Artificial Opening Endoscopic, Diagnostic (ICD-10-PCS; 2018-05-14)
DX: I21.4 Non-ST elevation (NSTEMI) myocardial infarction (principal); I50.33 Acute on chronic diastolic (congestive) heart failure; G93.40 Encephalopathy, unspecified; D68.59 Other primary thrombophilia; E87.0 Hyperosmolality and hypernatremia; N39.0 Urinary tract infection, site not specified; E46 Unspecified protein-calorie malnutrition; I69.351 Hemiplegia and hemiparesis following cerebral infarction affecting right dominant side; E86.0 Dehydration; D64.9 Anemia, unspecified; E87.6 Hypokalemia; F03.90 Unspecified dementia, unspecified severity, without behavioral disturbance, psychotic disturbance, mood disturbance, and anxiety; I65.23 Occlusion and stenosis of bilateral carotid arteries; D32.9 Benign neoplasm of meninges, unspecified; D69.6 Thrombocytopenia, unspecified; E78.5 Hyperlipidemia, unspecified; I27.20 Pulmonary hypertension, unspecified; I48.0 Paroxysmal atrial fibrillation; K80.20 Calculus of gallbladder without cholecystitis without obstruction; R62.7 Adult failure to thrive; F01.50 Vascular dementia, unspecified severity, without behavioral disturbance, psychotic disturbance, mood disturbance, and anxiety; I11.0 Hypertensive heart disease with heart failure; R73.9 Hyperglycemia, unspecified; M17.11 Unilateral primary osteoarthritis, right knee; I08.1 Rheumatic disorders of both mitral and tricuspid valves; J44.9 Chronic obstructive pulmonary disease, unspecified; K29.60 Other gastritis without bleeding; K44.9 Diaphragmatic hernia without obstruction or gangrene; Z68.23 Body mass index [BMI] 23.0-23.9, adult; K76.89 Other specified diseases of liver; Z87.11 Personal history of peptic ulcer disease; I69.311 Memory deficit following cerebral infarction; Z88.5 Allergy status to narcotic agent; Z88.8 Allergy status to other drugs, medicaments and biological substances; I25.2 Old myocardial infarction; Z93.1 Gastrostomy status
CPT/HCPCS: 36415; 71045; 74176; 76700; 80048; 80061; 80202; 80305; 82962; 83036; 83605; 83735; 84100; 84132; 84145; 84439; 84443; 84484; 85027; 87106; 88305; 88312; 88313; 92610; 93005; 93970; 96374; 97162; 97530; 99285; C1893; J0696; J1450; J1650; J2250; J2543; J3010; J3370; J3480; J3490; J7030; J7042; J7050; J7060; J7070; A4315